=== PATIENT | female | born 1995 | race Caucasian/White ===

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

== ENCOUNTER 2017-04-22 07:25 | Inpatient (IN) | payer OTHER ==
[2017-04-22] VITALS (18 sets, daily range): BP systolic 113–140; BP diastolic 65–87
[~2017-04-22] VITALS: Ht 160 cm; Wt 85.4 kg
[2017-04-22] MEDS ORDERED: TUMS500 MG PO (08:53)
[2017-04-22] MEDS ORDERED: PRENATAL TABLE1 EAC3 PO (08:53)
[2017-04-22 09:00] LABS: BASOPHIL (%) 0.1 % (0-1); EOSINOPHIL (%) 0.6 % (0-5); EOSINOPHIL COUNT 0.1 K/uL (0-0.3); HEMATOCRIT 35.8 % (36.0-46.0); HEMOGLOBIN 12.3 G/DL (11.9-15.5); IMMATURE GRANULOCYTE (%) 0.9 % (0.0-0.7); LYMPHOCYTE (%) 22.1 % (15-42); MCH 30.9 PG (29.0-34.0); MCHC 34.4 G/DL (30.0-36.0); MCV 89.9 FL (83-99); MONOCYTE COUNT 1.4 K/uL (0-0.8); NEUTROPHIL (%) 66.3 % (45-76); PLATELET COUNT 198 K/uL (156-360); RBC DIS.WIDTH-SD 42.1 % (39-53); RED BLOOD COUNT 3.98 M/uL (3.80-5.20); WHITE BLOOD COUNT 13.6 K/uL (4.1-10.2)
[2017-04-22 09:46] LABS: AMPHETAMINE NEGATIVE (500 ng/mL); BARBITURATES NEGATIVE (200 ng/mL); BENZODIAZEPINES NEGATIVE (150 ng/mL); BUPRENORPHINE NEGATIVE (10 ng/mL); COCAINE NEGATIVE (150 ng/mL); METHADONE NEGATIVE (200 ng/mL); METHAMPHETAMINE NEGATIVE (500 ng/mL); OPIATES (MORPHINE) NEGATIVE (100 ng/mL); OXYCODONE NEGATIVE (100 ng/mL); PHENCYCLIDINE NEGATIVE (25 ng/mL); PROPOXYPHENE NEGATIVE (300 ng/mL); THC CANNABINOIDS PRESUMPTIVE POSITIVE (50 ng/mL); TRICYCLIC ANTIDEPRESSANTS NEGATIVE (300 ng/mL)
[2017-04-23] VITALS (36 sets, daily range): BP systolic 106–148; BP diastolic 52–96
[2017-04-23 22:11] LABS: BASE EXCESS -5.1 mEq/L (-3 to +3); BICARBONATE 25.2 mEq/L (22-26); CARBOXY HGB 0.5 % (0-5); COMMENTS - BLOOD GASES VENOUS CORD GAS; METHEMOGLOBIN 1.7 % (0-1.5); PCO2 66 mm Hg (35-45); PO2 < 32 mm Hg (80-100); pH 7.19 (7.35-7.45)
[2017-04-23 22:14] LABS: BASE EXCESS -9.1 mEq/L (-3 to +3); BICARBONATE 22.1 mEq/L (22-26); CARBOXY HGB 0.7 % (0-5); METHEMOGLOBIN 1.7 % (0-1.5); PCO2 68 mm Hg (35-45)
[2017-04-23 22:15] LABS: COMMENTS - BLOOD GASES ARTERIAL CORD GAS; PO2 < 32 mm Hg (80-100); pH 7.12 (7.35-7.45)
[2017-04-24 00:34] VITALS: BP 124/67
[2017-04-24 07:03] LABS: BASOPHIL (%) 0.2 % (0-1); EOSINOPHIL (%) 0.6 % (0-5); EOSINOPHIL COUNT 0.1 K/uL (0-0.3); HEMATOCRIT 34.2 % (36.0-46.0); HEMOGLOBIN 11.4 G/DL (11.9-15.5); IMMATURE GRANULOCYTE (%) 0.6 % (0.0-0.7); LYMPHOCYTE (%) 15.6 % (15-42); LYMPHOCYTE COUNT 2.2 K/uL (1.0-2.8); MCH 30.4 PG (29.0-34.0); MCHC 33.3 G/DL (30.0-36.0); MCV 91.2 FL (83-99); MONOCYTE (%) 8.9 % (3-12); MONOCYTE COUNT 1.3 K/uL (0-0.8); NEUTROPHIL (%) 74.1 % (45-76); NEUTROPHIL COUNT 10.5 K/uL (1.8-6.4); PLATELET COUNT 174 K/uL (156-360); RBC DIS.WIDTH-SD 42.5 % (39-53); RED BLOOD COUNT 3.75 M/uL (3.80-5.20); WHITE BLOOD COUNT 14.2 K/uL (4.1-10.2)
[2017-04-24 07:16] VITALS: BP 111/59
[2017-04-24 16:06] VITALS: BP 120/68
[2017-04-24 22:39] VITALS: BP 133/66
[2017-04-25 00:16] LABS: APPEARANCE SL.HAZY ((CLEAR)); BILIRUBIN NEGATIVE; BLOOD LARGE; COLOR YELLOW ((YELLOW)); GLUCOSE (STRIP) NEGATIVE; KETONES NEGATIVE; LEUKOCYTES LARGE; NITRITE NEGATIVE; PROTEIN (STRIP) NEGATIVE; SPECIFIC GRAVITY 1.009 (1.000-1.030)
[2017-04-25 00:40] LABS: BACTERIA NONE SEEN /HPF; EPITHELIAL CELLS 1+ /HPF; MUCUS TRACE /LPF; RED BLOOD CELLS TNTC /HPF (0-5); WHITE BLOOD CELLS 20-30 /HPF (0-5)
[2017-04-25 07:26] VITALS: BP 111/59
[2017-04-25 15:49] VITALS: BP 125/63
== END 2017-04-25 16:04 | disposition home or self-care (01) | DRG 775 ==
LOC: LDRP-OP → 2WEST 07:27 → LDRP-OP 08:17 → 2WEST 04-23 21:47 → LDRP-OP 06-03 14:25
PROVIDERS: Advanced Practice Midwife; Obstetrics & Gynecology Obstetrics
PROC: 3E0P7GC Introduction of Other Therapeutic Substance into Female Reproductive, Via Natural or Artificial Opening (ICD-10-PCS; 2017-04-22)
PROC: 10E0XZZ Delivery of Products of Conception, External Approach (ICD-10-PCS; principal; 2017-04-23)
PROC: 10907ZC Drainage of Amniotic Fluid, Therapeutic from Products of Conception, Via Natural or Artificial Opening (ICD-10-PCS; 2017-04-23)
PROC: 3E0S3BZ Introduction of Anesthetic Agent into Epidural Space, Percutaneous Approach (ICD-10-PCS; 2017-04-23)
DX: O60.14X1 Preterm labor third trimester with preterm delivery third trimester, fetus 1 (principal); O99.354 Diseases of the nervous system complicating childbirth; O99.324 Drug use complicating childbirth; Z37.0 Single live birth; Z3A.37 37 weeks gestation of pregnancy; O99.824 Streptococcus B carrier state complicating childbirth; O99.214 Obesity complicating childbirth; E66.9 Obesity, unspecified; O36.5931 Maternal care for other known or suspected poor fetal growth, third trimester, fetus 1; G43.909 Migraine, unspecified, not intractable, without status migrainosus; O12.04 Gestational edema, complicating childbirth; F12.10 Cannabis abuse, uncomplicated; O69.81X1 Labor and delivery complicated by cord around neck, without compression, fetus 1; Z87.891 Personal history of nicotine dependence; Z91.040 Latex allergy status
CPT/HCPCS: 36600; 81003; 82803; 84999; 85025; 87077; 87086; 87186; 88307; C1755; G0378; J0595; J2405; J2540; J7120; Q0169